=== PATIENT | female | born 1980 | race Two or more races ===

== ENCOUNTER 2018-08-31 17:40 | Emergency (ER) | payer OTHER ==
[~2018-08-31] VITALS: Ht 165.1 cm; Wt 67.1 kg
[2018-08-31] MEDS ORDERED: PERCOCET 5-3251 EACH PO (22:11)
== END 2018-08-31 22:23 | disposition home or self-care (01) ==
LOC: ER 17:40
DX: M51.26 Other intervertebral disc displacement, lumbar region (principal); M54.5 Low back pain

== ENCOUNTER 2022-03-25 10:00 | Day surgery (SDC) | payer OTHER ==
[~2022-03-25 10:00] MED LIST: PERCOCET 5-3251 EACH PO
== END 2022-03-25 14:40 | disposition home or self-care (01) ==
LOC: CIR.AMB 10:00
PROVIDERS: ATTEND Otolaryngology Otology & Neurotology
DX: D37.02 Neoplasm of uncertain behavior of tongue (principal); K14.0 Glossitis; I10 Essential (primary) hypertension; F41.0 Panic disorder [episodic paroxysmal anxiety]